=== PATIENT | male | born 1990 | race Caucasian/White ===

== ENCOUNTER 2022-01-27 16:31 | Emergency (ER) | payer BC, SELFPAY ==
--- NOTE | 2022-01-27 16:33 | ED.WOUNDLAC ---
HPI - Wound/Laceration General Chief Complaint: Wound/Laceration Stated Complaint: Laceration to Finger Time Seen by Provider: 01/27/22 16:33 Source: patient and RN notes reviewed History of Present Illness HPI narrative: Patient is a 31-year-old male who presents the urgent care with complaints of a laceration to the right index finger. Patient states that he did approximately 4 PM working on his truck yesterday. Patient states its closed but he was concerned since he is not up-to-date on a tetanus shot. Patient has been applying Neosporin and a Band-Aid. Denies of any swelling, redness or pain. No other acute complaints. No acute distress noted. Patient and plan of care. Some parts of this dictation were generated by voice recognition software and may contain typographical and/or grammatical inaccuracies. Related Data Home Medications Medication Instructions Recorded Confirmed albuterol 90 mcg/actuation aerosol 90 mcg inhalation Q6H PRN Dyspnea 01/27/22 01/27/22 inhaler buspirone 5 mg tablet 5 mg PO BID 01/27/22 01/27/22 escitalopram oxalate 20 mg tablet 20 mg PO DAILY 01/27/22 01/27/22 esomeprazole magnesium 20 mg 20 mg PO DAILY 01/27/22 01/27/22 capsule,delayed release metformin 500 mg tablet 500 mg PO BID 01/27/22 01/27/22 Allergies Allergy/AdvReac Type Severity Reaction Status Date / Time No Known Allergies Allergy Verified 01/27/22 16:45 Review of Systems Review of Systems: CONSTITUTIONAL: Denies fever, chills, or sweats. EYES: Denies visual changes, redness, or discharge. ENT: Denies rhinorrhea, congestion, sore throat, or otalgia. CARDIOVASCULAR: Denies chest pain, palpitations, or edema. RESPIRATORY: Denies cough or dyspnea. GASTROINTESTINAL: Denies abdominal pain, nausea, vomiting, or diarrhea. GENITOURINARY: Denies dysuria or hematuria. SKIN: Reports a laceration to the right index finger. Denies rash or itching. MUSCULOSKELETAL: Denies back pain, joint pain, or myalgia. NEUROLOGIC: Denies headache, numbness, or weakness. All other systems reviewed are negative, except as documented in HPI. PMFSH Comments At the time of my signature, I reviewed and agree with the nursing past medical, surgical, social, and family history. There is no relevant family history pertinent to the patient complaint. Exam Narrative: GENERAL: This is a well-nourished, well-developed patient, in no apparent distress. HEAD: normocephalic, atraumatic. EYES: PERRL. Sclera clear/white. Vision is grossly intact. EARS: External ears normal NOSE: External nose normal with no obvious nasal discharge, nares without redness, no rhinorrhea. THROAT: Mucous membranes moist, posterior pharynx clear. NECK: Neck supple SKIN: Healing puncture wound noted to the PIP of the dorsal right index finger and a 0.25 cm linear closed superficial skin abrasion between the PIP and the MCP of the dorsal right index finger. Warm, intact with no suspicious lesions or rash, good texture and turgor. NEURO: awake, alert, and oriented to person, place and time. There were no obvious focal neurologic abnormalities. EXTREMITIES: No clubbing, cyanosis, or edema. Range of motion to right upper extremity within normal limits with positive strong right radial pulse and capillary refill less than 2 seconds. Course Course Level of Care: Express Care Visit Vital Signs Vital signs: Vital Signs Temperature 98.4 F 01/27/22 16:38 Pulse Rate 72 01/27/22 16:38 Respiratory Rate 14 01/27/22 16:38 Blood Pressure 138/89 01/27/22 16:38 Pulse Oximetry 99 01/27/22 16:38 Oxygen Delivery Room Air 01/27/22 16:38 Temperature 98.4 F 01/27/22 16:38 Pulse Rate 72 01/27/22 16:38 Respiratory Rate 14 01/27/22 16:38 Blood Pressure 138/89 01/27/22 16:38 Pulse Oximetry 99 01/27/22 16:38 Oxygen Delivery Room Air 01/27/22 16:38 Reviewed MDM - Wound/Laceration MDM Narrative Medical decision making narrative: You are now up-to-date o
[2022-01-27 16:38] VITALS: BP 138/89; PULSE 72; RESP 14; TEMP 36.9; O2SAT 99
[2022-01-27] MEDS: TETANUS,DIPHTHERIA,AC PERTUSSIS ADULT (0.5 ML) BOOSTRIX IM (16:51)
== END 2022-01-27 17:10 | disposition home or self-care (01) ==
PROVIDERS: Emergency Provider Nurse Practitioner Family; PCP Nurse Practitioner Family
DX: S60.410A Abrasion of right index finger, initial encounter (principal); T14.90XA Injury, unspecified, initial encounter
CPT/HCPCS: 90471; 90715; 99213; G0463

== ENCOUNTER 2022-05-18 08:12 | Emergency (ER) | payer BC, SELFPAY ==
[2022-05-18 08:28] VITALS: BP 130/83; PULSE 80; RESP 16; TEMP 36.5; O2SAT 98
--- NOTE | 2022-05-18 08:30 | ED.SKABFB ---
HPI - Skin/Abscess/Foreign Bdy General Chief complaint: Skin/Abscess/Foreign Body Stated complaint: right big toe hangnail infection Time Seen by Provider: 05/18/22 08:20 Source: patient and RN notes reviewed History of Present Illness HPI narrative: patient is a 31-year-old male who presents to urgent care with complaints of right great toe infection. Patient states it started 2 days ago after he clipped his toenails 3 days ago. Patient states that he now has yellow drainage. He has been using Neosporin. Denies any fever, chills, nausea or vomiting. No other acute complaints. No acute distress noted. Patient aware of plan of care. Some parts of this dictation were generated by voice recognition software and may contain typographical and/or grammatical inaccuracies. Related Data Home Medications Medication Instructions Recorded Confirmed escitalopram oxalate 20 mg tablet 20 mg PO DAILY 01/27/22 05/18/22 esomeprazole magnesium 20 mg 20 mg PO DAILY 01/27/22 05/18/22 capsule,delayed release metformin 500 mg tablet 500 mg PO TID 01/27/22 05/18/22 albuterol sulfate 90 mcg/actuation 2 puff inhalation Q4-6H PRN 05/18/22 05/18/22 aerosol inhaler Shortness Of Breath budesonide-formoterol HFA 160 2 puff inhalation DAILY 05/18/22 05/18/22 mcg-4.5 mcg/actuation aerosol inhaler (Symbicort) buspirone 7.5 mg tablet 7.5 mg PO DAILY 05/18/22 05/18/22 epinephrine 0.3 mg/0.3 mL 0.3 mg IM DAILY PRN Allergic 05/18/22 05/18/22 injection, auto-injector Reaction fluticasone 250 mcg-salmeterol 50 2 inh inhalation DAILY 05/18/22 05/18/22 mcg/dose blistr powdr for inhalation (Advair Diskus) hydroxyzine HCl 25 mg tablet 25 mg PO DAILY 05/18/22 05/18/22 rosuvastatin 20 mg tablet 20 mg PO DAILY 05/18/22 05/18/22 Allergies Allergy/AdvReac Type Severity Reaction Status Date / Time No Known Allergies Allergy Verified 05/18/22 08:29 Review of Systems Review of Systems: CONSTITUTIONAL: Denies fever, chills, or sweats. EYES: Denies visual changes, redness, or discharge. ENT: Denies rhinorrhea, congestion, sore throat, or otalgia. CARDIOVASCULAR: Denies chest pain, palpitations, or edema. RESPIRATORY: Denies cough or dyspnea. GASTROINTESTINAL: Denies abdominal pain, nausea, vomiting, or diarrhea. GENITOURINARY: Denies dysuria or hematuria. SKIN: Reports of pain, swelling drainage to the right great toe MUSCULOSKELETAL: Denies back pain, joint pain, or myalgia. NEUROLOGIC: Denies headache, numbness, or weakness. All other systems reviewed are negative, except as documented in HPI. PMFSH Comments At the time of my signature, I reviewed and agree with the nursing past medical, surgical, social, and family history. There is no relevant family history pertinent to the patient complaint. Exam Narrative: GENERAL: This is a well-nourished, well-developed patient, in no apparent distress. HEAD: normocephalic, atraumatic. EYES: PERRL. Sclera clear/white. Vision is grossly intact. EARS: External ears normal, auditory canals clear and without drainage, TMs normal without perforation. Hearing grossly intact. NOSE: External nose normal with no obvious nasal discharge, nares without redness, no rhinorrhea. THROAT: Mucous membranes moist, posterior pharynx clear. NECK: Neck supple SKIN: yellow drainage serosanguineous fluid the paronychia on the medial aspect of the right great toe with mild to moderate surrounding edema/erythema NEURO: awake, alert, and oriented to person, place and time. There were no obvious focal neurologic abnormalities. EXTREMITIES: No clubbing, cyanosis, or edema. positive pedal pulses cap refill 2 seconds Course Course Level of Care: Express Care Visit Vital Signs Vital signs: Vital Signs Temperature 97.7 F 05/18/22 08:28 Pulse Rate 80 05/18/22 08:28 Respiratory Rate 16 05/18/22 08:28 Blood Pressure 130/83 05/18/22 08:28 Pulse Oximetry 98 05/18/22 08:28 Oxygen Delivery Room Air 05/18/22
== END 2022-05-18 08:50 | disposition home or self-care (01) ==
PROVIDERS: Emergency Provider Nurse Practitioner Family; PCP Nurse Practitioner Family
DX: L03.031 Cellulitis of right toe (principal); J45.909 Unspecified asthma, uncomplicated; K21.9 Gastro-esophageal reflux disease without esophagitis; E11.9 Type 2 diabetes mellitus without complications; F41.9 Anxiety disorder, unspecified
CPT/HCPCS: 99213; G0463

== ENCOUNTER 2023-08-16 08:59 | Emergency (ER) | payer BC, SELFPAY ==
[2023-08-16 09:10] VITALS: BP 115/79; PULSE 87; RESP 18; TEMP 36.6; O2SAT 98
--- NOTE | 2023-08-16 09:13 | ED.EYEPROB ---
HPI - Eye Problem General Chief complaint: Eye Problems Stated complaint: Right Eye Problem Source: patient Mode of arrival: ambulatory Limitations: no limitations History of Present Illness HPI Narrative: 33 y/o male presented for c/o right eye redness and drainage, onset yesterday. Endorses itching and clear discharge, and the eye was matted shut this morning. States he had a piece of plastic fly into his right eye 5 days ago, which he was able to remove without difficulty and caused no complications. Denies vision changes, eye pain, photophobia, fb sensation, headache. MD chief complaint: eye pain Related Data Home Medications Medication Instructions Recorded Confirmed escitalopram oxalate 20 mg tablet 20 mg PO DAILY 01/27/22 08/16/23 esomeprazole magnesium 20 mg 20 mg PO DAILY 01/27/22 08/16/23 capsule,delayed release metformin 500 mg tablet 500 mg PO TID 01/27/22 08/16/23 albuterol sulfate 90 mcg/actuation 2 puff inhalation Q4-6H PRN 05/18/22 08/16/23 aerosol inhaler Shortness Of Breath budesonide-formoterol HFA 160 2 puff inhalation DAILY 05/18/22 08/16/23 mcg-4.5 mcg/actuation aerosol inhaler (Symbicort) buspirone 7.5 mg tablet 7.5 mg PO DAILY 05/18/22 08/16/23 epinephrine 0.3 mg/0.3 mL 0.3 mg IM DAILY PRN Allergic 05/18/22 08/16/23 injection, auto-injector Reaction fluticasone 250 mcg-salmeterol 50 2 inh inhalation DAILY 05/18/22 08/16/23 mcg/dose blistr powdr for inhalation (Advair Diskus) hydroxyzine HCl 25 mg tablet 25 mg PO DAILY 05/18/22 08/16/23 rosuvastatin 20 mg tablet 20 mg PO DAILY 05/18/22 08/16/23 Allergies Allergy/AdvReac Type Severity Reaction Status Date / Time No Known Allergies Allergy Verified 08/16/23 09:20 Review of Systems Review of Systems: CONSTITUTIONAL: Denies body aches, fever, chills EYES: reports redness and drainage right eye; denies swelling, FB sensation, photophobia, visual changes ENT: Denies rhinorrhea, congestion, sore throat, or otalgia. CARDIOVASCULAR: Denies chest pain, palpitations RESPIRATORY: Denies cough or dyspnea. SKIN: Denies rash, itching, or wounds. NEUROLOGIC: Denies headache All systems reviewed & are unremarkable except as noted in HPI and below PMFSH Comments At time of signature, I have reviewed and agree with nursing past medical, surgical, social and family history unless otherwise noted. Please see nursing chart for further information. There is no relevant family history pertinent to the presenting complaint Exam Narrative: GENERAL: Well-appearing HEAD: Normocephalic, atraumatic. EYES: Mild right conjunctival injection, subconjunctival hemorrhage to 5o'clock position, crust noted to lashes; no eye lid swelling, PERRLA, EOMI. Lid eversion shows no FB. No corneal abrasion noted on Sherman exam ENT: Mucous membranes pink and moist. No rhinorrhea. TMs normal bilaterally. Throat normal. Uvula midline. CHEST: Clear to auscultation. HEART: Regular rate and rhythm. ABDOMEN: Soft, nontender, nondistended SKIN: Warm, dry, no rash. Normal skin turgor. NEURO: No focal deficits. Alert and oriented x3 PSYCH: Normal affect. Course Course Emergency Course: Patient is aware of diagnosis, understands and agrees to treatment plan. Anticipatory guidance given. Patient agrees to follow-up as directed and is aware of reasons to seek care at the emergency department. Portions of this record may have been created with voice recognition software Level of Care: Express Care Visit Vital Signs Vital signs: Vital Signs Temperature 98 F 08/16/23 09:10 Pulse Rate 87 08/16/23 09:10 Respiratory Rate 18 08/16/23 09:10 Blood Pressure 115/79 08/16/23 09:10 Pulse Oximetry 98 08/16/23 09:10 Oxygen Delivery Room Air 08/16/23 09:10 Temperature 98 F 08/16/23 09:10 Pulse Rate 87 08/16/23 09:10 Respiratory Rate 18 08/16/23 09:10 Blood Pressure 115/79 08/16/23 09:10 Pulse Oximetry 98 08/16/23
== END 2023-08-16 09:32 | disposition home or self-care (01) ==
PROVIDERS: Emergency Provider Nurse Practitioner Family
DX: H10.9 Unspecified conjunctivitis (principal); H11.31 Conjunctival hemorrhage, right eye; J45.909 Unspecified asthma, uncomplicated; K21.9 Gastro-esophageal reflux disease without esophagitis; E11.9 Type 2 diabetes mellitus without complications; F41.9 Anxiety disorder, unspecified
CPT/HCPCS: 99213; A9270; G0463